=== PATIENT | male | born 1995 | race Caucasian/White ===

== ENCOUNTER 2021-02-23 15:48 | Emergency (ER) | payer OTHER ==
[2021-02-23] MEDS ORDERED: ELIQUIS2.5 MG PO (17:28)
== END 2021-02-23 17:32 | disposition home or self-care (01) ==
LOC: ER1 15:48
DX: U07.1 COVID-19 (principal); D68.51 Activated protein C resistance
CPT/HCPCS: 99283

== ENCOUNTER 2021-04-16 14:00 | Emergency (ER) | payer OTHER ==
[~2021-04-16 14:00] MED LIST: ELIQUIS2.5 MG PO
[2021-04-16 15:03] LABS: HEMOGLOBIN 14.9 gm/dl (14.0-17.5); RED BLOOD COUNT 4.77 M/UL (4.20-5.50); WHITE BLOOD COUNT 8.1 K/UL (4.5-11.0)
[2021-04-16 15:28] LABS: BUN/CREATININE RATIO 20 (0-10)
== END 2021-04-16 16:30 | disposition home or self-care (01) ==
LOC: ER1 14:00
PROVIDERS: Emergency Medicine
DX: R07.9 Chest pain, unspecified (principal); R05 Cough; Z20.822 Contact with and (suspected) exposure to COVID-19
CPT/HCPCS: 71045; 80053; 82550; 82553; 83874; 84484; 85025; 85379; 93005; 99285; U0003

== ENCOUNTER → 2021-04-28 | Outpatient (CLI) | payer OTHER | LOC: CT 14:00 | DX: R07.9 Chest pain, unspecified (principal) | CPT/HCPCS: 71260; Q9967 ==